=== PATIENT | female | born 1945 | race Two or more races ===

== ENCOUNTER 2022-04-04 12:00 | Outpatient (CLI) | payer OTHER ==
[~2022-04-04 12:00] MED LIST: DICLOFENAC POTA50 MG PO; NORFLEX100MG PO; TESSALON PERLE100 M1 PO; TRAMADOL HCL50 MG PO
== END 2022-04-04 12:30 | disposition home or self-care (01) ==
LOC: PPH VACUNA 12:00
PROVIDERS: ATTEND Emergency Medicine Pediatric Emergency Medicine
DX: Z23 Encounter for immunization (principal)

== ENCOUNTER 2024-09-11 12:35 | Outpatient (CLI) | payer OTHER | END 2024-09-11 12:40 | disposition home or self-care (01) | LOC: NUCLEAR 12:35 | PROVIDERS: ATTEND Physical Medicine & Rehabilitation | DX: I82.403 Acute embolism and thrombosis of unspecified deep veins of lower extremity, bilateral (principal); I87.2 Venous insufficiency (chronic) (peripheral) ==